=== PATIENT | female | born 1945 | race Two or more races ===

== ENCOUNTER → 2024-05-09 | Emergency (ER) | payer OTHER ==
[~2024-05-09] VITALS: Ht 162.6 cm; Wt 95.3 kg
[~2024-05-09] MED LIST: ACETAMINOPHEN 325 MG TABLET PO STA; GLUMETZA500 MG; NEURONTIN300 MG; PROTONIX20 MG; TETANUS & DIPHTHERIA TOX,ADULT 0.5 ML VIAL IM ONE; WARFARIN SODIUM2 MG
[2024-05-09 11:14] VITALS: BP 145/74; O2SAT 99
[2024-05-09 12:01] LABS: HEMATOCRIT 44.8 % (36.0-45.00); HEMOGLOBIN 15.1 g/dL (12.0-15.00); MEAN CELL VOLUME 88.3 fL (80.00-100.00); MEAN CORPUSCULAR HEMOGLOBIN 29.8 pg (27.00-32.0); MEAN CORPUSCULAR HGB CONC 33.8 g/dl (32.0-36.0); PLATELET COUNT 249 K/uL (150-450); RED BLOOD COUNT 5.07 M/uL (4.00-6.00); RED CELL DISTRIBUTION WIDTH 15.2 % (11.5-14.5)
[2024-05-09 12:33] LABS: CALCIUM 10.3 mg/dL (8.5-10.1); CREATININE SERUM 0.63 mg/dL (0.55-1.02); GFR 90.92; POTASSIUM 4.33 mEq/L (3.5-5.1)
== END | disposition home or self-care (01) ==
LOC: ER 11:04
PROVIDERS: Emergency Medicine
DX: S00.03XA Contusion of scalp, initial encounter (principal); W01.0XXA Fall on same level from slipping, tripping and stumbling without subsequent striking against object, initial encounter; Y93.89 Activity, other specified; Y92.89 Other specified places as the place of occurrence of the external cause; E11.9 Type 2 diabetes mellitus without complications; Z79.84 Long term (current) use of oral hypoglycemic drugs

== ENCOUNTER 2024-05-10 09:17 | Emergency (ER) | payer OTHER ==
[~2024-05-10] VITALS: Ht 152.4 cm; Wt 72.6 kg
[~2024-05-10 09:17] MED LIST changes: -ACETAMINOPHEN 325 MG TABLET PO STA; -TETANUS & DIPHTHERIA TOX,ADULT 0.5 ML VIAL IM ONE
[2024-05-10] MEDS ORDERED: TETANUS & DIPHTHERIA TOX,ADULT 0.5 ML VIAL IM ONE (09:30)
[2024-05-10] MEDS ORDERED: TETANUS DIPHTHERIA TOX. ADSOR 5 ML VIAL IM ONE (09:32)
== END 2024-05-10 12:11 | disposition home or self-care (01) ==
LOC: ER 09:17
DX: S51.021A Laceration with foreign body of right elbow, initial encounter (principal); W18.39XA Other fall on same level, initial encounter; Y93.89 Activity, other specified; Y92.018 Other place in single-family (private) house as the place of occurrence of the external cause; I10 Essential (primary) hypertension; I49.8 Other specified cardiac arrhythmias
CPT/HCPCS: 12005; 73070; 90471; 90714; 99283; J1670

== ENCOUNTER 2024-07-06 15:09 | Emergency (ER) | payer OTHER ==
[~2024-07-06] VITALS: Ht 157.5 cm; Wt 68.0 kg
[2024-07-06] MEDS ORDERED: METOPROLOL SUCC50 MG (15:28)
[2024-07-06] MEDS ORDERED: Dextrose ORAL GEL 37.5GM GEL PO ONE (15:44)
[2024-07-06] MEDS ORDERED: 0.9 % SODIUM CHLORIDE 1,000 ML IV ONE (16:30)
[2024-07-06 18:05] LABS: HEMATOCRIT 44.1 % (36.0-45.00); HEMOGLOBIN 14.4 g/dL (12.0-15.00); MEAN CELL VOLUME 89.5 fL (80.00-100.00); MEAN CORPUSCULAR HEMOGLOBIN 29.3 pg (27.00-32.0); MEAN CORPUSCULAR HGB CONC 32.7 g/dl (32.0-36.0); PLATELET COUNT 197 K/uL (150-450); RED BLOOD COUNT 4.92 M/uL (4.00-6.00)
[2024-07-06 18:31] LABS: PH,URINE 6.5 (5.0-8.0); URINE APPEARANCE Clear; URINE BILIRRUBIN Negative (NEGATIVE); URINE BLOOD Negative; URINE COLOR Yellow; URINE GLUCOSE Negative (NEGATIVE); URINE KETONE Negative (NEGATIVE); URINE LEUKOCYTE Negative; URINE NITRATE Negative; URINE PROTEIN Negative (NEGATIVE)
[2024-07-06 18:36] LABS: URINE BACTERIA 17.1 uL (0.0-1933); URINE EPITHELIAL CELLS 1.7 uL (0.0-38.8); URINE RBC 2.3 uL (0.0-20.8)
[2024-07-06 18:52] LABS: ALBUMIN 3.5 gm/dL (3.4-5.0); BILIRUBIN TOTAL 0.52 mg/dL (0.3-1.2); CALCIUM 9.6 mg/dL (8.5-10.1); CREATININE SERUM 0.74 mg/dL (0.55-1.02); GFR 75.51; GLOBULINA 3.3 G/DL (2.4-3.5); TOTAL PROTEIN 6.8 gm/dL (6.4-8.2)
[2024-07-06 18:53] LABS: INR 2.22; PARTIAL THROMBOPLASTIN TIME 34.2 SECONDS (22.0-34.0)
[2024-07-06 18:54] LABS: PROTHROMBIN TIME 22.8 SECONDS (9.0-11.5)
[2024-07-06 19:02] LABS: POTASSIUM 4.19 mEq/L (3.5-5.1)
[2024-07-06 20:06] LABS: URINE WBC 1.7 uL (0.0-23.2)
[2024-07-06 20:07] LABS: URINE CAST 0.29 uL (0.0-1.40)
[2024-07-06] MEDS ORDERED: LEVOFLOXACIN750 MG PO (22:25)
[2024-07-06] MEDS ORDERED: PEPCID AC20 MG PO (22:25)
== END 2024-07-06 22:53 | disposition home or self-care (01) ==
LOC: ER 15:09
PROVIDERS: General Practice
DX: J18.9 Pneumonia, unspecified organism (principal); R42 Dizziness and giddiness; Z20.822 Contact with and (suspected) exposure to COVID-19; I10 Essential (primary) hypertension; E11.9 Type 2 diabetes mellitus without complications; Z79.84 Long term (current) use of oral hypoglycemic drugs; Z91.018 Allergy to other foods; Z91.041 Radiographic dye allergy status
CPT/HCPCS: 36415; 70450; 71045; 71250; 93005; 96365; 96366; 99284; J7030